=== PATIENT | female | born 2000 | race Caucasian/White ===

== ENCOUNTER 2022-04-11 13:53 | Emergency (ER) | payer BC, SELFPAY ==
[2022-04-11 14:42] VITALS: BP 0/0; PULSE 0; RESP 0; TEMP -17.7; TEMP 0
== END 2022-04-11 14:42 | disposition left against medical advice (07) ==
PROVIDERS: Emergency Provider Nurse Practitioner; PCP Internal Medicine
DX: Z53.21 Procedure and treatment not carried out due to patient leaving prior to being seen by health care provider (principal)

== ENCOUNTER 2023-12-03 11:35 | Outpatient (CLI) | payer BC, SELFPAY ==
[2023-12-03 11:51] LABS: Basophils # 0.1 K/mm3 (0-0.2); Basophils % 0.6 % (0.1-2.0); Eosinophils # 0.2 K/mm3 (0.0-0.4); Eosinophils % 2.2 % (0.1-12.0); Hemoglobin 14.1 g/dL (12.2-16.2); Lymphocytes # 2.7 K/mm3 (0.7-4.5); Lymphocytes % 26.7 % (10-50); Mean Corpuscular HGB Conc 32.1 g/dL (31.8-35.4); Mean Corpuscular Hemoglobin 29.1 pg (27.0-31.2); Mean Corpuscular Volume 90.8 fl (81-99); Mean Platelet Volume 8.3 fl (7.4-10.4); Monocytes # 0.4 K/mm3 (0.1-1.0); Monocytes % 4.2 % (1.7-9.3); Neutrophils # 6.6 K/mm3 (1.8-7.8); Neutrophils % 66.3 % (37.0-80.0); Platelet Count 238 K/mm3 (142-424); Red Blood Count 4.85 M/mm3 (4.20-5.40); Red Cell Distribution Width 13.3 % (11.5-17.5)
[2023-12-03 12:01] LABS: Activated Partial Thrombo Time 32.4 seconds (22.8-30.6); INR 1.01 (0.9-1.1); Prothrombin Time 10.9 seconds (10.1-12.5)
[2023-12-03 12:16] LABS: Erythrocyte Sedimentation Rate 5 mm/hr (0-20)
== END 2023-12-03 23:59 | disposition home or self-care (01) ==
PROVIDERS: PCP Internal Medicine; Visit Provider Internal Medicine
DX: R23.3 Spontaneous ecchymoses (principal)
CPT/HCPCS: 36415; 85025; 85610; 85651; 85730

== ENCOUNTER 2023-12-10 14:15 | Outpatient (CLI) | payer BC, SELFPAY ==
[2023-12-10 15:36] LABS: Free T4 (Free Thyroxine) 1.35 ng/dl (0.78-2.19)
[2023-12-10 16:09] LABS: Thyroid Stimulating Hormone 0.98 uIU/mL (0.465-4.68)
== END 2023-12-10 23:59 | disposition home or self-care (01) ==
LOC: LAB.DROPOF 14:15
PROVIDERS: PCP Internal Medicine; Visit Provider Internal Medicine
DX: R00.2 Palpitations (principal); L65.9 Nonscarring hair loss, unspecified; R53.83 Other fatigue; R23.3 Spontaneous ecchymoses; R41.89 Other symptoms and signs involving cognitive functions and awareness
CPT/HCPCS: 84439; 84443